=== PATIENT | male | born 1975 | race Caucasian/White ===

== ENCOUNTER 2021-02-28 17:55 | Observation (INO) ==
[2021-02-28] MEDS ORDERED: IOPAMIDOL 100 ML BOTTLE IV ONE ×2 (17:56→22:12)
--- NOTE | 2021-02-28 19:48 | Emergency Department Note ---
Chest Pain HPI General Chief Complaint: Chest Pain Stated Complaint: chest pain Time Seen by Provider: 02/28/21 18:29 Source: patient Mode of arrival: ambulatory Limitations: no limitations History of Present Illness HPI Narrative: Narrative: Presents to room T3 for evaluation of chest pain. Patient was sent from [facility] after being evaluated for chest pain. The chest pain started 4 days ago. He describes it as a sharp pain primarily left side radiating to the right. It is in the lower portion of the chest. The pain is made worse with movement and deep breaths. The patient had an EKG chest x- ray and labs done at [facility]. The patient's D-dimer was elevated he was referred to the emergency department for further evaluation. The patient denies any fevers or chills. No cough or sputum production. No hemoptysis. No lower extremity swelling or calf pain. The patient denies any recent travel or surgery. No trauma. He denies supplemental hormone use. No family history of thromboembolic disease. Related Data Home Medications Medication Instructions Recorded Confirmed No Known Home Meds 02/28/21 02/28/21 Allergies Allergy/AdvReac Type Severity Reaction Status Date / Time No Known Drug Allergies Allergy Verified 02/28/21 18:00 Review of Systems ROS ROS Narrative: Narrative: All systems ED: reviewed and negative except as stated. PFSH Narrative Patient History Narrative: Narrative: Medical/Surgical/Family History All Active Problems (Updated 02/28/21 @ 21:07 by Omar Mathur MD) Pulmonary embolism (Acute) Chest pain (Acute) Social History Smoking Status: Never smoker Exam Narrative Narrative: Narrative: General Limitations: no limitations General appearance: Present alert and in no apparent distress Head Head: Present atraumatic, normocephalic and normal inspection Eye Eye: Present normal appearance and EOMI; Absent conjunctival injection ENT ENT: Present normal exam and mucous membranes moist Neck Neck: Present normal inspection and trachea midline Respiratory Respiratory: Present normal lung sounds bilaterally; Absent respiratory distress Cardiovascular Cardiovascular: Present regular rate, normal rhythm and normal heart sounds Adbominal Abdominal: Present soft; Absent distention, tenderness, guarding and rebound Extremities Extremities: Present normal inspection; Absent tenderness Back Back: Present normal inspection; Absent tenderness Neurological Neurological: Present alert, oriented X3 and CN II-XII intact; Absent motor sensory deficit Psychiatric Psychiatric: Present normal affect and normal mood Skin Skin: Present warm (WNL) and dry; Absent rash Course Vital Signs Vital signs: Vital Signs Temperature 97.8 F 02/28/21 17:56 Pulse Rate 84 02/28/21 17:56 Respiratory Rate 16 02/28/21 17:56 Blood Pressure 180/102 02/28/21 17:56 Pulse Oximetry (%) 99 02/28/21 17:56 Temperature 97.8 F 02/28/21 17:56 Pulse Rate 79 02/28/21 18:31 Respiratory Rate 16 02/28/21 17:56 Blood Pressure 143/90 02/28/21 18:31 Pulse Oximetry (%) 96 02/28/21 18:31 MDM MDM Narrative Medical decision making narrative: Narrative: Patient presents for evaluation of chest pain with an elevated D-dimer. EKG was reported to show right bundle branch block pattern but no acute injury or ischemia pattern. Chest x-ray obtained at [facility] and reviewed by myself is read by the radiologist as normal. Labs were obtained and were normal except for the D-dimer which is elevated. CTA of the chest was obtained and shows a segmental pulmonary embolus in the left lower lobe. There is also noted be discoid atelectasis. The patient is in no acute distress. Vital signs are normal with normal blood pressure, normal heart rate and pulse oximetry of 96%. I did discuss the case with the on-call property adjuster, Dr. Boogie. He has recommended the patient be admitted. I did speak with the hospitalist, Dr. Garzon. He is excepted the patient for admission. Lab Data Lab results reviewed: Yes I reviewed the patient's lab results. Radiology Data Radiology results reviewed: Yes I reviewed the patient's radiology results. Pulse Oximetry Data Pulse Ox %: 96 Interpretation: Room air normal Discharge Plan Patient/Caregiver Discharge Instructions Pt seen by GLASS MOLD REPAIRER/PA only: No Clinical Impression: Chest pain, Pulmonary embolism Patient Disposition: Xfer As Inpt ([facility]) Follow up with: No,PCP [Primary Care Provider] - Prescriptions: No Action No Known Home Meds RF: 0
[2021-02-28] MEDS ORDERED: ENOXAPARIN 60 MG/0.6 ML SYRINGE SQ ONE (21:05)
--- NOTE | 2021-02-28 21:38 | Internal Med History&Physical ---
HPI History of Present Illness Patient information: Note initiated : 02/28/21 at 9:37 pm Service Date, if different from initiated Date: Patient: Kilo Barber 45 y/o M admitted on for chest pain. Chief Complaint: Chest pain History of present illness: Mr. Barber is a 45 year old healthy male with no significant past medical history presented to emergency room with 1 week history of chest pain. Patient chest pain started a week ago. It is left-sided nonradiating. It is a stabbing in nature. Sometimes she has shortness of breath. Patient had no recent travel, no recent surgical procedure. He denies weight loss hemoptysis. In the emergency room troponin was negative. EKG was nonischemic. CT angio of the chest showed left lung segmental pulmonary embolus. Patient denies dizziness nausea vomiting abdominal pain. Patient had no recent prostate exam check, no colonoscopy. No weight loss. Patient has no family history of blood clots. His father has prostate cancer. Review of Systems All systems: reviewed and no additional remarkable complaints except as stated PFSH PFSH All Active Problems Pulmonary embolism (Acute) Chest pain (Acute) MEDS/ALLERGIES Home Medications and Allergies Home Medications Medication Instructions Recorded Confirmed Type No Known Home Meds 02/28/21 02/28/21 History Allergies Allergy/AdvReac Type Severity Reaction Status Date / Time No Known Drug Allergies Allergy Verified 02/28/21 18:00 EXAM Constitutional Vitals: Temp Pulse Resp BP Pulse Ox 97.8 F 69 16 145/108 98 02/28/21 17:56 02/28/21 21:01 02/28/21 17:56 02/28/21 21:01 02/28/21 21:01 General appearance: cooperative, no acute distress and thin (Well-developed well-nourished healthy looking pleasant young man in no distress) Head Head exam: Present atraumatic, normal inspection and normocephalic Eye Eye exam: Present EOMI, normal appearance and PERRL Neck Neck exam: Present full ROM and normal inspection Respiratory Respiratory exam: Present normal respiratory exam and CTAB Cardiovascular Cardiovascular exam: Present normal rate and rhythm, +S1 and +S2; Absent diastolic murmur and systolic murmur GI/Abdominal GI/Abdominal exam: Present normal bowel sounds and soft; Absent hernia, mass, rebound and tenderness Extremities Exam Extremities exam: Present full ROM, normal capillary refill and normal inspection; Absent calf tenderness and joint swelling Back Exam Back exam: Present full ROM Neurological Exam Neurological exam: Present alert, CN II-XII intact, oriented X3 and reflexes normal Psychiatric Psychiatric exam: Present normal affect and normal mood Skin Skin exam: Present dry, normal color and warm A/P Narrative A/P Narrative: 45 years old male with no significant past medical history presented with chest pain #Acute left segmental pulmonary embolus -Unprovoked. No family history of blood clots. No previous history of blood clots. No weight loss. -Hemodynamically stable. No hypoxia. No hypotension. -Admit to telemetry and monitor for 24 hours. -Start Lovenox 1 mg/kilogram twice daily and switch to Eliquis in the morning. Start 10 mg p.o. twice daily X 7 days then 5 mg twice daily at least for 6 months. -Patient needs hypercoagulable work-up as outpatient. He also needs malignancy work-up as outpatient including colonoscopy, PSA and digital rectal exam by urologist. I will check CT scan of abdomen and pelvis in the morning to rule out any obvious malignancy while he is hospitalized. DVT prophylaxis. Lovenox CODE STATUS: Full code Disposition: Observation Plan of care discussed with patient and nursing staff. Time Spent With Patient Time: Total time spent is greater than 50% in coordination of care (as documented) at patient's floor/unit and/or counseling patient:
[2021-02-28] MEDS ORDERED: HYDROcodone/APAP 5/325MG TABLET PO PRN (22:12)
[2021-02-28] MEDS ORDERED: ACETAMINOPHEN 325 MG TABLET PO PRN (22:12)
[2021-02-28] MEDS ORDERED: CALCIUM CARBONATE 500 MG TAB.CHEW CHEWED PRN (22:12)
[2021-02-28] MEDS ORDERED: ONDANSETRON 4 MG/2 ML VIAL IV PRN (22:12)
[2021-02-28] MEDS ORDERED: ZOLPIDEM 5 MG TABLET PO PRN (22:12)
[2021-02-28] MEDS ORDERED: ALBUTEROL SULFATE 2.5 MG/3 ML NEBULIZER NEB PRN (22:12)
[2021-02-28] MEDS ORDERED: ONDANSETRON 4 MG ODT TABLET SL PRN (22:12)
[2021-02-28] MEDS: 0.9 % SODIUM CHLORIDE 10 ML SYRINGE IV SCH (23:09)
--- NOTE | 2021-03-01 03:20 | Cat Scan Report ---
CLINICAL INFORMATION: Chest pain and shortness of breath COMPARISON: None. TECHNIQUE: ml of Isovue-370 were injected intravenously. Using SmartPrep to maximize pulmonary artery opacification, .625mm helical slices were obtained from the lung apices through the lung bases. Following reconstruction, 2.5 mm sagittal, coronal, and axial reformations were processed. The exam was reviewed at mediastinal, lung, and bone windows. The exam was performed using radiation dose optimization techniques including, but not limited to, automated exposure control, adjustment of the mA and/or kV according to patient size and use of iterative reconstruction technique. FINDINGS: Mediastinal windows show occlusive emboli within the medial segmental branches of both left and right lower lobe pulmonary arteries. The remaining pulmonary arteries are well-opacified. Central pulmonary artery is normal diameter - 2.9 cm - no evidence of pulmonary hypertension. Thoracic aorta is normal diameter with diffuse intimal thickening. The heart is grossly normal in size. Esophagus is grossly normal. There is no adenopathy in the mediastinal hilar or axillary regions. Thyroid is unremarkable. Pulmonary parenchymal windows show a small (3 cm) pleural-based region of consolidated infiltrate in the posterior and medial basilar left lower lobe segment. This is likely atypical atelectasis rather than infiltrate or infarct. Subsegmental atelectasis seen in both posterior lower lobes. Tiny bilateral pleural effusions noted. Bones and soft tissues the chest wall show no abnormality. Images through the upper abdomen are unremarkable. IMPRESSION: 1. Acute occlusive emboli within the medial segmental branches of both lower lobe pulmonary arteries. No evidence of pulmonary hypertension. 2. 3 cm consolidated in pleural-based infiltrate posterior medial left lower lobe. This is most likely atypical atelectasis rather than infiltrate or pulmonary infarct. Interpreted and Authenticated by: Devon Mccarthy 03/01/21
[2021-03-01] MEDS: 0.9 % SODIUM CHLORIDE 10 ML SYRINGE IV SCH (06:06)
[2021-03-01 06:34] LABS: Hematocrit 40.5 % (41.0-55.0); Hemoglobin 13.8 g/dL (13.5-16.5); Mean Cell Volume 92.9 fL (80.0-100.0); Mean Corpuscular HGB Conc 34.1 g/dL (31.0-36.0); Mean Platelet Volume 9.4 fL (7.4-10.4); Platelet Count 251 K/mcL (140-440); RBC 4.36 M/mcL (4.50-5.90); Red Cell Distribution Width 11.4 % (11.5-14.5); WBC 4.7 K/mcL (4.5-11.0)
[2021-03-01 07:31] LABS: Band Neutrophils % 1 % (0-10); Eosinophils % (Manual) 1 % (0-7); Lymphocytes % 26 % (15-49); Monocytes % (Manual) 7 % (1-12); Myelocytes % 1 %; Platelet Estimate NORMAL (Normal); RBC Morphology NORMAL (Normal); Reactive Lymphocytes 8 % (0-2); Segmented Neutrophils % 56 % (38-78)
[2021-03-01] MEDS ORDERED: ENOXAPARIN 80 MG/0.8 ML SYRINGE SQ SCH (09:00)
--- NOTE | 2021-03-01 10:39 | Discharge Summary ---
Discharge Provider Provider Patient information: Note initiated : 03/01/21 at 10:34 am Service Date, if different from initiated Date: [] Patient: Kilo Barber 45 y/o M admitted on 02/28/21 for chest pain. Chief Complaint: Chest pain for 1 week Date of admission: 02/28/21 22:00 Discharge date: 03/01/21 Primary care physician: PCP No Consults: 02/28/21 Consult to Physician [CONS] Stat Comment: Consulting Provider: Favian Garzon Reason For Exam: Physician to Consult Discharge Meds Discharge Medications Home Medications Cait Allergy 1 tab PO HS 02/28/21 [History Confirmed 02/28/21 Last Taken 02/27/21 17:00] apixaban [Eliquis] 10 mg PO BID #90 tab 03/01/21 [Rx Last Taken Unknown] COURSE Hospital Course Hospital course: 45 years old male with no significant past medical history presented with chest pain started about a week ago. His hospital course is as following: #Acute left segmental pulmonary embolus - CTA chest Acute occlusive emboli within the medial segmental branches of both lower lobe pulmonary arteries. No evidence of pulmonary hypertension. -Unprovoked. No family history of blood clots. No previous history of blood clots. No weight loss. Pt unaware if he had Covid 19 infection or not. He had Covid Vaccine 2 days ago. -Hemodynamically stable. No hypoxia. No hypotension. -No event on Telemetry -Rxed with Lovenox 1 mg/kg bid, and switch to Eliquis this afternoon. Start 10 mg p.o. twice daily X 7 days then 5 mg twice daily at least for 6 months. Further Rx depends on further work up and Cause. -Patient needs hypercoagulable work-up as outpatient. He also needs malignancy work-up as outpatient including colonoscopy. - Normal PSA 0.7. - I ordered check CT scan of abdomen and pelvis to rule out any obvious malignancy but unable to do since he received IV Contrast for CTA chset. This can be done as out patient. - Pt Dc home in stable condition. Disposition: Patient discharged home Condition on discharge: Hemodynamically stable. Tolerated p.o. Discharge activity: As tolerated Discharge diet: Healthy, low-fat Discharge medication: See med reconciliation form Discharge follow-up: Primary care physician within 1 week for post hospital follow-up. Needs CT scan of abdomen pelvis with contrast, colonoscopy and hypercoagulable work-up as outpatient Discharge diagnosis: Acute pulmonary embolus with no hemodynamic instability Time Spent with Patient Time attestation: Total time spent providing and/or coordinating discharge services: Specific discharge activities: Avoid any strenuous physical activity for 1 month or until you follow-up with your primary care doctor EXAM Constitutional Vitals: Temp Pulse Resp BP Pulse Ox 97.6 F 65 16 128/81 99 03/01/21 07:46 03/01/21 07:46 03/01/21 07:46 03/01/21 07:46 03/01/21 07:46 Discharge Data Data Completed and Pending Labs on day of discharge: Labs from last 24 hours 03/01/21 02/28/21 05:35 14:24 WBC 4.7 RBC 4.36 L Hgb 13.8 Hct 40.5 L MCV 92.9 MCH 31.7 MCHC 34.1 RDW 11.4 L Plt Count 251 MPV 9.4 Seg Neutrophils % 56 Band Neutrophils % 1 Lymphocytes % 26 Monocytes % (Manual) 7 Eosinophils % (Manual) 1 Myelocytes % 1 Reactive Lymphocytes 8 H Platelet Estimate Normal RBC Morphology Normal Prostate Specific Ag 0.70 Discharge Plan Patient/Caregiver Discharge Instructions Activity: increase activity as tolerated and other Diet: Regular Diet Activity Restrictions/Additional Instructions: Avoid any strenuous physical activity for 1 month until you follow up with your primary care doctor Prescriptions: New Eliquis 5 mg Tablet 10 mg PO BID Qty: 90 RF: 0 Continued Cait Allergy 1 tab PO HS RF: 0 Follow Up Plan Follow up with: No,PCP [Primary Care Provider] - Patient Disposition: Home, Self-Care Care Plan Goals: Follow-up with primary care physician. CT scan of abdomen and pelvis with contrast. Patient needs colonoscopy. Discharge Orders: Discharge Order (Routine); Ordered 03/01/21 Ordered By: Favian VOGT VTE Deep Vein Thrombosis/Pulmonary Embolism Present on Admission: Yes
[2021-03-01] MEDS ORDERED: APIXABAN 5 MG TABLET PO SCH (21:00)
== END 2021-03-01 13:07 | disposition home or self-care (01) ==
LOC: MEDSUR 17:55 → ED 17:55 → MEDSUR 22:00
PROVIDERS: ADMIT Internal Medicine; ATTEND Internal Medicine